=== PATIENT | male | born 1955 | race African-American/Black ===

== ENCOUNTER → 2023-11-14 | Day surgery (SDC) | payer BC, MEDICARE ==
[2023-11-10 09:36] LABS: BASOPHILS % 0.6 % (0.0-1.0); EOSINOPHILS # (AUTO) 0.2 (0.0-0.4); EOSINOPHILS % 3.2 % (0.0-6.0); HEMOGLOBIN 11.4 g/dL (14.0-18.0); LYMPHOCYTES # (AUTO) 1.1 (1.0-3.2); LYMPHOCYTES % 15.7 % (18.0-39.1); MEAN CORPUSCULAR HEMOGLOBIN 31.2 pg (28-32); MEAN CORPUSCULAR HGB CONC 33.5 g/dL (31-35); MEAN CORPUSCULAR VOLUME 93.2 fL (81-99); MONOCYTES # (AUTO) 0.8 (0.2-0.8); NEUTROPHILS # (AUTO) 4.6 (2.1-6.9); NEUTROPHILS % 68.2 % (38.7-80.0); PLATELET COUNT 231 x10e3/uL (140-360); RED BLOOD COUNT 3.65 x10e6/uL (4.3-5.7); RED CELL DISTRIBUTION WIDTH 13.2 % (11.7-14.4); WHITE BLOOD COUNT 6.77 x10e3/uL (4.8-10.8)
[~2023-11-14] MED LIST: AMLODIPINE BESY10 MG PO; AZESCO TABLET1 EACH PO; BICALUTAMIDE50 MG PO; DOXAZOSIN MESYLA2 MG PO; FENTANYL CITRATE/PF 100MCG/2 ML INJ ONE; LIDOCAINE HCL 2% LOCAL INJ 5 ML SDV VIAL INJ ONE; LIPITOR10 MG PO; LOSARTAN-HCTZ1 EAC1 PO; METOPROLOL SUCC50 MG PO; MIDAZOLAM HCL 2 MG/2 ML VIAL ONE; PROPOFOL IV EMULSION 50 ML IV ONE; VIT D3 PO
[2023-11-14] MEDS: LACTATED RINGER'S 1,000 ML ONE (05:42)
[2023-11-14 08:10] VITALS: TEMP 97
[2023-11-14 08:40] VITALS: BP 132/82; PULSE 65; RESP 14; O2SAT 98
== END | disposition home or self-care (01) ==
LOC: OR 05:29
PROVIDERS: ATTEND Internal Medicine Gastroenterology
DX: K31.7 Polyp of stomach and duodenum (principal); T18.2XXA Foreign body in stomach, initial encounter; W44.F3XA Food entering into or through a natural orifice, initial encounter; K29.60 Other gastritis without bleeding; K29.50 Unspecified chronic gastritis without bleeding; K64.8 Other hemorrhoids; D64.9 Anemia, unspecified; K63.5 Polyp of colon; C61 Malignant neoplasm of prostate; I10 Essential (primary) hypertension; E78.5 Hyperlipidemia, unspecified; E66.01 Morbid (severe) obesity due to excess calories; Z68.37 Body mass index [BMI] 37.0-37.9, adult; I44.7 Left bundle-branch block, unspecified; R00.1 Bradycardia, unspecified; Z85.038 Personal history of other malignant neoplasm of large intestine; Z90.49 Acquired absence of other specified parts of digestive tract; Z01.812 Encounter for preprocedural laboratory examination; Z01.810 Encounter for preprocedural cardiovascular examination; Z79.899 Other long term (current) drug therapy
CPT/HCPCS: 36415; 43235; 85025; 93005; J2001; J2250; J2704; J3010; J7121; 43239

== ENCOUNTER → 2023-11-21 | Day surgery (SDC) | payer BC, MEDICARE ==
[~2023-11-21] MED LIST changes: +EPHEDRINE SULFATE INJ 50 MG/ML VIAL ONE; +PROPOFOL IV EMULSION 10 MG/ML 20 ML VIAL ONE; -PROPOFOL IV EMULSION 50 ML IV ONE
[2023-11-21] MEDS: LACTATED RINGER'S 1,000 ML ONE (06:02)
[2023-11-21 08:56] VITALS: TEMP 97.5
[2023-11-21 09:25] VITALS: BP 124/78; PULSE 57; RESP 16; O2SAT 97
== END | disposition home or self-care (01) ==
LOC: OR 05:15
PROVIDERS: ATTEND Internal Medicine Gastroenterology
DX: K31.7 Polyp of stomach and duodenum (principal); K29.00 Acute gastritis without bleeding; K31.A12 Gastric intestinal metaplasia without dysplasia, involving the body (corpus); K31.A13 Gastric intestinal metaplasia without dysplasia, involving the fundus; K29.50 Unspecified chronic gastritis without bleeding; K29.60 Other gastritis without bleeding; K31.89 Other diseases of stomach and duodenum; K44.9 Diaphragmatic hernia without obstruction or gangrene; I10 Essential (primary) hypertension; E78.5 Hyperlipidemia, unspecified; Z86.010 Personal history of colon polyps; Z85.038 Personal history of other malignant neoplasm of large intestine; Z90.49 Acquired absence of other specified parts of digestive tract; Z85.46 Personal history of malignant neoplasm of prostate; Z92.3 Personal history of irradiation; Z79.899 Other long term (current) drug therapy
CPT/HCPCS: 43239; 43251; 88305; 88342; J2001; J2250; J2704; J3010; J7121

== ENCOUNTER → 2024-02-23 | Day surgery (SDC) | payer MEDICARE, BC ==
[2024-02-20 10:11] LABS: BASOPHILS % 0.6 % (0.0-1.0); EOSINOPHILS # (AUTO) 0.2 (0.0-0.4); HEMATOCRIT 34.8 % (38.2-49.6); HEMOGLOBIN 11.5 g/dL (14.0-18.0); LYMPHOCYTES # (AUTO) 1.1 (1.0-3.2); LYMPHOCYTES % 16.8 % (18.0-39.1); MEAN CORPUSCULAR HEMOGLOBIN 30.6 pg (28-32); MEAN CORPUSCULAR VOLUME 92.6 fL (81-99); MONOCYTES # (AUTO) 0.7 (0.2-0.8); MONOCYTES % 11.2 % (4.4-11.3); NEUTROPHILS # (AUTO) 4.2 (2.1-6.9); NEUTROPHILS % 67.1 % (38.7-80.0); PLATELET COUNT 268 x10e3/uL (140-360); RED BLOOD COUNT 3.76 x10e6/uL (4.3-5.7); RED CELL DISTRIBUTION WIDTH 13.8 % (11.7-14.4); WHITE BLOOD COUNT 6.32 x10e3/uL (4.8-10.8)
[~2024-02-23] MED LIST changes: +GLUCAGON FOR INJ 1 MG VIAL ONE
[2024-02-23] MEDS: LACTATED RINGER'S 1,000 ML ONE (08:07)
[2024-02-23 10:14] VITALS: TEMP 97.6
[2024-02-23 10:45] VITALS: BP 113/70; PULSE 68; RESP 16; O2SAT 96
== END | disposition home or self-care (01) ==
LOC: OR 07:40
PROVIDERS: ATTEND Internal Medicine Gastroenterology
DX: K31.7 Polyp of stomach and duodenum (principal); K29.60 Other gastritis without bleeding; K29.50 Unspecified chronic gastritis without bleeding; K31.A12 Gastric intestinal metaplasia without dysplasia, involving the body (corpus); K44.9 Diaphragmatic hernia without obstruction or gangrene; K21.9 Gastro-esophageal reflux disease without esophagitis; K31.89 Other diseases of stomach and duodenum; K63.5 Polyp of colon; K64.8 Other hemorrhoids; D64.9 Anemia, unspecified; I10 Essential (primary) hypertension; E78.5 Hyperlipidemia, unspecified; R00.1 Bradycardia, unspecified; Z01.810 Encounter for preprocedural cardiovascular examination; Z01.812 Encounter for preprocedural laboratory examination; Z68.37 Body mass index [BMI] 37.0-37.9, adult; Z85.038 Personal history of other malignant neoplasm of large intestine; Z85.46 Personal history of malignant neoplasm of prostate; Z92.3 Personal history of irradiation
CPT/HCPCS: 36415; 43239; 43251; 85025; 88305; 88342; 93005; J1610; J2003; J2250; J2704; J3010; J7121